=== PATIENT | male | born 1940 | race Caucasian/White ===

== ENCOUNTER 2019-04-25 03:35 | Emergency (ER) | payer MEDICARE, MEDICAID ==
[~2019-04-25] VITALS: Ht 172.7 cm; Wt 95.3 kg
[~2019-04-25 03:35] MED LIST: ACET-1156 PO; ALPR0.254 PO; AMIO200T33 PO; ASPI-404 PO; CYCL1TAB18 PO; DIPH2.5T73 PO; FOLI1TAB6 PO; HYDR-4833 PO; IPRA1SOL3 IN; LEVO50TA7 PO; MAGN400S25 PO; NAP500T PO; NITR100C44 PO; RIS1T PO; TAMS0.4C36 PO; TEMA30CA PO; TRAZ50TA2 PO
[2019-04-25 04:21] LABS: Eosinophils # (auto) 0.3 uL; Hemoglobin 10.1 g/dL (13.5-17.5); White Blood Cell 4.6 10^3/uL (4.4-10.8)
[2019-04-25 04:22] LABS: Basophils # (auto) 0.1 uL; Basophils % (auto) 1.1 % (0.0-2.0); Eosinophils % (auto) 6.1 % (0.0-7.0); Hematocrit 29.4 % (41.0-53.0); Lymphocytes % (auto) 21.8 % (10.0-50.0); Mean Corpuscular Hemoglobin 35.4 pg (28.0-32.0); Mean Corpuscular Hgb Conc. 34.4 g/dL (32.0-36.0); Mean Corpuscular Volume 102.8 fL (80.0-100.0); Monocytes # (auto) 0.5 uL; Monocytes % (auto) 10.3 % (0.0-12.0); Neutrophils # (auto) 2.8 uL; Neutrophils % (auto) 60.7 % (37.0-80.0); Nucleated Red Blood Cells % 0.1 %; Platelet Count (auto) 134 10^3/uL (140-450); Red Blood Cells 2.86 10^6/uL (4.5-5.90); Red Cell Distribution Width 13.4 % (11.8-14.3)
[2019-04-25 04:37] LABS: Albumin 2.4 g/dL (3.4-5.0); Anion Gap 9 (5-15); Blood Urea Nitrogen 18 mg/dL (7-18); Calcium 7.9 mg/dL (8.5-10.1); Carbon Dioxide 24 mmol/L (21-32); Chloride 108 mmol/L (98-107); GFR African American 87 mL/min; GFR Non-African American 72 mL/min; Glucose 84 mg/dL (74-106); Potassium 3.9 mmol/L (3.5-5.1); Sodium 141 mmol/L (136-145)
[2019-04-25 04:44] LABS: Alanine Aminotransferase 27 U/L (16-61); Alkaline Phosphatase 118 U/L (45-117); Aspartate Aminotransferase 22 U/L (15-37); Bilirubin, Total 0.3 mg/dL (0.2-1.0); Total Protein 6.2 g/dL (6.4-8.2)
[2019-04-25 05:52] LABS: Urine Bacteria FEW /hpf (None Seen); Urine Blood 2+ /uL (Negative); Urine Specific Gravity 1.011 (1.001-1.035); Urine WBC 120 /hpf (0 - 3); Urine WBC Clumps PRESENT /hpf (None Seen)
[2019-04-25 05:57] LABS: INR 1.06 (0.9-1.15)
[2019-04-25] MEDS ORDERED: cefTRIAXone 1GM/50ML D5W 50 ML IV ONE (07:00)
[2019-04-25] MEDS ORDERED: IOHEXOL 350 MG/ML 100ML IJ ONE (07:03)
[2019-04-25] MEDS: MORPHINE SULF INJ 2 MG/ML SYRINGE 1ML IV ONE ×2 (07:15→10:45)
[2019-04-25] MEDS: ONDANSETRON HCL 4 MG/2 ML VIAL IV ONE ×2 (07:15→10:45)
[2019-04-25] MEDS ORDERED: SPIRONOLACTONE 25 MG TAB PO ONE (10:15)
[2019-04-25] MEDS ORDERED: FUROSEMIDE 20 MG/2 ML VIAL IV ONE (10:15)
[2019-04-25 14:11] VITALS: BP 108/62
== END 2019-04-25 15:11 ==
LOC: ER 03:35 → EDBD 03:35 → EDUNIT# 03:35 → ER 15:11
DX: R33.9 Retention of urine, unspecified (principal); Q54.9 Hypospadias, unspecified; N47.2 Paraphimosis; I48.91 Unspecified atrial fibrillation; E11.9 Type 2 diabetes mellitus without complications; Z86.73 Personal history of transient ischemic attack (TIA), and cerebral infarction without residual deficits; Z79.82 Long term (current) use of aspirin; Z79.899 Other long term (current) drug therapy
CPT/HCPCS: 36415; 71275; 80053; 81001; 84484; 85025; 85379; 85610; 96365; 96375; 99285; J0696; J1940; Q9967; J2405

== ENCOUNTER 2019-12-09 10:06 | Inpatient (IN) | payer MEDICARE, MEDICAID ==
[~2019-12-09] VITALS: Ht 172.7 cm; Wt 80.2 kg
[~2019-12-09 10:06] MED LIST changes: +IPRA0.00 IN; -IPRA1SOL3 IN
[2019-12-09] MEDS ORDERED: ALBUTEROL SULF 2.5 MG/0.5ML(0.5%) NEB SOLN NEB ONE (10:45)
[2019-12-09] MEDS ORDERED: levoFLOXacin 750MG 150 ML IV ONE (10:45)
[2019-12-09] MEDS ORDERED: IPRATROPIUM BROM 0.5 MG/2.5ML INH SOL NEB ONE (10:45)
[2019-12-09 10:46] LABS: Basophils # (auto) 0 10 ^3/uL (0-0.2); Basophils % (auto) 0.5 % (0.0-2.0); Eosinophils # (auto) 0.1 10 ^3/uL (0-0.8); Eosinophils % (auto) 3.4 % (0.0-7.0); Hematocrit 35.5 % (41.0-53.0); Lymphocytes # (auto) 0.9 10 ^3/uL (0.4-5.4); Lymphocytes % (auto) 23.2 % (10.0-50.0); Mean Corpuscular Hemoglobin 34.5 pg (28.0-32.0); Mean Corpuscular Hgb Conc. 33.8 g/dL (32.0-36.0); Mean Corpuscular Volume 102.2 fL (80.0-100.0); Monocytes # (auto) 0.6 10 ^3/uL (0-1.3); Monocytes % (auto) 16.9 % (0.0-12.0); Neutrophils # (auto) 2.1 10 ^3/uL (1.6-8.6); Platelet Count (auto) 117 10^3/uL (140-450); Red Blood Cells 3.48 10^6/uL (4.5-5.90); Red Cell Distribution Width 13.5 % (11.8-14.3); White Blood Cell 3.7 10^3/uL (4.4-10.8)
[2019-12-09 11:05] LABS: Calcium 8.1 mg/dL (8.5-10.1); Potassium 4.1 mmol/L (3.5-5.1)
[2019-12-09 11:08] LABS: BUN/Creatinine Ratio 15.7; Bilirubin, Total 0.3 mg/dL (0.2-1.0); Total Protein 6.4 g/dL (6.4-8.2)
[2019-12-09] MEDS ORDERED: NITROGLYCERIN 0.4 MG SL TAB SL PRN (13:00)
[2019-12-09] MEDS ORDERED: MORPHINE SULF INJ 2 MG/ML SYRINGE 1ML IV PRN ×2 (13:00)
[2019-12-09] MEDS ORDERED: ACETAMINOPHEN 500 MG TAB PO PRN (13:00)
[2019-12-09] MEDS ORDERED: HYDROcodone-ACET 5/325MG TAB PO PRN (13:00)
[2019-12-09 13:10] VITALS: BP 109/52
[2019-12-09 16:10] VITALS: BP 139/66
[2019-12-09 17:00] VITALS: BP 139/66
[2019-12-09] MEDS: IPRATROPIUM BROM 0.5 MG/2.5ML INH SOL NEB SCH (18:21)
[2019-12-09] MEDS: ALBUTEROL SULF 2.5 MG/0.5ML(0.5%) NEB SOLN NEB SCH (18:21)
[2019-12-09] MEDS: BUDESONIDE (INHALATION) 0.5 MG/2 ML NEB NEB SCH (18:21)
[2019-12-09] MEDS: PIPERACILLIN-TAZOB 3.375GM 100 ML IV SCH ×2 (18:26→23:24)
[2019-12-09] MEDS: TAMSULOSIN HYDROCHLORIDE 0.4 MG CAP PO SCH (18:27)
[2019-12-09] MEDS: traZODone HCL 50 MG TAB PO SCH (21:20)
[2019-12-09] MEDS: APIXABAN 2.5 MG TAB PO SCH (21:20)
[2019-12-09] MEDS: ATORVASTATIN 20 MG TAB PO SCH (21:20)
[2019-12-09 22:00] VITALS: BP 123/73
[2019-12-10 04:57] VITALS: BP 126/67
[2019-12-10] MEDS: PIPERACILLIN-TAZOB 3.375GM 100 ML IV SCH ×4 (05:39→23:56)
[2019-12-10 06:36] LABS: Mean Corpuscular Hemoglobin 35.2 pg (28.0-32.0); Platelet Count (auto) 112 10^3/uL (140-450); Red Blood Cells 3.45 10^6/uL (4.5-5.90); Red Cell Distribution Width 13.5 % (11.8-14.3); White Blood Cell 4.6 10^3/uL (4.4-10.8)
[2019-12-10 06:40] LABS: Hematocrit 35.6 % (41.0-53.0); Hemoglobin 12.1 g/dL (13.5-17.5); Mean Corpuscular Hgb Conc. 34.1 g/dL (32.0-36.0); Mean Corpuscular Volume 103.3 fL (80.0-100.0)
[2019-12-10 06:46] LABS: BUN/Creatinine Ratio 14.4; Calcium 8.3 mg/dL (8.5-10.1); Potassium 4.3 mmol/L (3.5-5.1)
[2019-12-10 06:52] LABS: Basophils % (manual) 0 (0.0-2.0); Blast Cells 0; Eosinophils % (manual) 0 (0-7); Metamyelocytes % 0; Myelocytes % 0; Promyelocytes % 0; Reactive Lymphocytes 0
[2019-12-10] MEDS: ALBUTEROL SULF 2.5 MG/0.5ML(0.5%) NEB SOLN NEB SCH ×3 (07:31→19:20)
[2019-12-10] MEDS: IPRATROPIUM BROM 0.5 MG/2.5ML INH SOL NEB SCH ×3 (07:31→19:20)
[2019-12-10] MEDS: BUDESONIDE (INHALATION) 0.5 MG/2 ML NEB NEB SCH ×2 (07:31→19:20)
[2019-12-10 08:00] VITALS: BP 128/63
[2019-12-10 08:08] LABS: Band Neutrophils % (manual) 3; Lymphocytes % (manual) 24 (10.0-50.0); Monocytes % (manual) 11 (0-12)
[2019-12-10 09:00] VITALS: BP 128/63
[2019-12-10] MEDS: FAMOTIDINE 20 MG TAB PO SCH (09:58)
[2019-12-10] MEDS: APIXABAN 2.5 MG TAB PO SCH ×2 (09:58→22:40)
[2019-12-10] MEDS ORDERED: APIX5TAB PO (09:59)
[2019-12-10] MEDS ORDERED: DOCU-94 PO (09:59)
[2019-12-10] MEDS ORDERED: BISA-3 PO (09:59)
[2019-12-10] MEDS ORDERED: FLEETMIN PR (09:59)
[2019-12-10] MEDS ORDERED: MAGN400S25 PO (09:59)
[2019-12-10] MEDS ORDERED: UROJET2 MM (09:59)
[2019-12-10] MEDS ORDERED: ATOR20TA50 PO (09:59)
[2019-12-10] MEDS ORDERED: PERCOT PO (09:59)
[2019-12-10] MEDS ORDERED: LORA0.5T12 PO (09:59)
[2019-12-10] MEDS ORDERED: BISA10SU5 RE (09:59)
[2019-12-10] MEDS: ONDANSETRON HCL 4 MG/2 ML VIAL IV PRN ×2 (10:27→18:23)
[2019-12-10] MEDS ORDERED: levoFLOXacin 500MG 100 ML IV ONE (11:30)
[2019-12-10 13:00] VITALS: BP 110/63
[2019-12-10 17:00] VITALS: BP 110/56
[2019-12-10] MEDS: TAMSULOSIN HYDROCHLORIDE 0.4 MG CAP PO SCH (18:05)
[2019-12-10 22:00] VITALS: BP 111/71
[2019-12-10] MEDS: traZODone HCL 50 MG TAB PO SCH (22:40)
[2019-12-10] MEDS: ATORVASTATIN 20 MG TAB PO SCH (22:41)
[2019-12-11 02:00] VITALS: BP 110/59
[2019-12-11 04:48] VITALS: BP 122/64
[2019-12-11] MEDS: PIPERACILLIN-TAZOB 3.375GM 100 ML IV SCH ×2 (05:18→12:59)
[2019-12-11 06:36] LABS: BUN/Creatinine Ratio 15.2; Calcium 8.4 mg/dL (8.5-10.1); Potassium 3.9 mmol/L (3.5-5.1)
[2019-12-11] MEDS: BUDESONIDE (INHALATION) 0.5 MG/2 ML NEB NEB SCH ×2 (07:19→20:23)
[2019-12-11] MEDS: IPRATROPIUM BROM 0.5 MG/2.5ML INH SOL NEB SCH ×3 (07:19→20:23)
[2019-12-11] MEDS: ALBUTEROL SULF 2.5 MG/0.5ML(0.5%) NEB SOLN NEB SCH ×3 (07:19→20:23)
[2019-12-11 08:32] LABS: Free T4 (Free Thyroxine) 1.23 ng/dL (0.89-1.76)
[2019-12-11 08:33] LABS: Folate (Folic Acid) 11.15 ng/mL (5.38-24)
[2019-12-11 09:00] VITALS: BP 125/61
[2019-12-11] MEDS: APIXABAN 2.5 MG TAB PO SCH ×2 (10:29→21:21)
[2019-12-11] MEDS: FAMOTIDINE 20 MG TAB PO SCH (10:29)
[2019-12-11] MEDS: levoFLOXacin 500MG 100 ML IV SCH (10:34)
[2019-12-11] MEDS ORDERED: MULTIPLE VITAMINS W/ MINERALS TAB PO ONE (12:00)
[2019-12-11] MEDS ORDERED: SODIUM CHLORIDE 0.9% 1,000 ML IV ONE (12:00)
[2019-12-11] MEDS ORDERED: CYANOCOBALAMIN (B-12) 1000 MCG/1 ML VIAL SUBCUT ONE (12:00)
[2019-12-11 13:00] VITALS: BP 113/67
[2019-12-11] MEDS ORDERED: FLORASTOR (S. BOULARDII) 250 MG CAP PO SCH (13:45)
[2019-12-11] MEDS ORDERED: FLORASTOR (S. BOULARDII) 250 MG CAP PO ONE (14:00)
[2019-12-11 17:20] VITALS: BP 119/61
[2019-12-11] MEDS: TAMSULOSIN HYDROCHLORIDE 0.4 MG CAP PO SCH (18:28)
[2019-12-11] MEDS: traZODone HCL 50 MG TAB PO SCH (21:21)
[2019-12-11] MEDS: FLORASTOR (S. BOULARDII) 250 MG CAP PO SCH (21:21)
[2019-12-11] MEDS: ATORVASTATIN 20 MG TAB PO SCH (21:22)
[2019-12-12 04:42] VITALS: BP 113/55
[2019-12-12 06:02] LABS: Basophils # (auto) 0 10 ^3/uL (0-0.2); Basophils % (auto) 0.2 % (0.0-2.0); Eosinophils # (auto) 0.1 10 ^3/uL (0-0.8); Eosinophils % (auto) 3.4 % (0.0-7.0); Hematocrit 33.4 % (41.0-53.0); Hemoglobin 11.4 g/dL (13.5-17.5); Lymphocytes # (auto) 1.1 10 ^3/uL (0.4-5.4); Lymphocytes % (auto) 28.2 % (10.0-50.0); Mean Corpuscular Hgb Conc. 34.1 g/dL (32.0-36.0); Mean Corpuscular Volume 102.6 fL (80.0-100.0); Monocytes # (auto) 0.6 10 ^3/uL (0-1.3); Monocytes % (auto) 13.6 % (0.0-12.0); Neutrophils # (auto) 2.2 10 ^3/uL (1.6-8.6); Neutrophils % (auto) 54.6 % (37.0-80.0); Nucleated Red Blood Cells % 0.1 %; Platelet Count (auto) 114 10^3/uL (140-450); Red Blood Cells 3.26 10^6/uL (4.5-5.90); Red Cell Distribution Width 13.4 % (11.8-14.3); White Blood Cell 4.1 10^3/uL (4.4-10.8)
[2019-12-12 06:15] LABS: Calcium 8.3 mg/dL (8.5-10.1); Magnesium 2.6 mg/dL (1.6-2.6); Potassium 3.5 mmol/L (3.5-5.1)
[2019-12-12 06:18] LABS: BUN/Creatinine Ratio 16.2
[2019-12-12] MEDS: IPRATROPIUM BROM 0.5 MG/2.5ML INH SOL NEB SCH ×3 (06:43→19:21)
[2019-12-12] MEDS: ALBUTEROL SULF 2.5 MG/0.5ML(0.5%) NEB SOLN NEB SCH ×3 (06:44→19:21)
[2019-12-12] MEDS: BUDESONIDE (INHALATION) 0.5 MG/2 ML NEB NEB SCH ×2 (06:44→19:21)
[2019-12-12 08:00] VITALS: BP 112/70
[2019-12-12] MEDS: FLORASTOR (S. BOULARDII) 250 MG CAP PO SCH ×2 (10:00→22:05)
[2019-12-12] MEDS: levoFLOXacin 500MG 100 ML IV SCH (11:43)
[2019-12-12] MEDS: APIXABAN 2.5 MG TAB PO SCH ×2 (11:43→22:05)
[2019-12-12] MEDS: FAMOTIDINE 20 MG TAB PO SCH (11:44)
[2019-12-12] MEDS: MULTIPLE VITAMINS W/ MINERALS TAB PO SCH (11:44)
[2019-12-12 12:00] VITALS: BP 101/59
[2019-12-12 17:00] VITALS: BP 117/60
[2019-12-12] MEDS: TAMSULOSIN HYDROCHLORIDE 0.4 MG CAP PO SCH (18:00)
[2019-12-12 22:00] VITALS: BP 107/55
[2019-12-12] MEDS: traZODone HCL 50 MG TAB PO SCH (22:05)
[2019-12-12] MEDS: ATORVASTATIN 20 MG TAB PO SCH (22:05)
[2019-12-13 05:00] VITALS: BP 119/66
[2019-12-13] MEDS: BUDESONIDE (INHALATION) 0.5 MG/2 ML NEB NEB SCH ×2 (06:30→19:07)
[2019-12-13] MEDS: IPRATROPIUM BROM 0.5 MG/2.5ML INH SOL NEB SCH ×3 (06:30→19:07)
[2019-12-13] MEDS: ALBUTEROL SULF 2.5 MG/0.5ML(0.5%) NEB SOLN NEB SCH ×3 (06:30→19:07)
[2019-12-13 08:59] VITALS: BP 128/69
[2019-12-13] MEDS: APIXABAN 2.5 MG TAB PO SCH ×2 (12:35→22:00)
[2019-12-13] MEDS: levoFLOXacin 500MG 100 ML IV SCH (12:35)
[2019-12-13] MEDS: FAMOTIDINE 20 MG TAB PO SCH (12:36)
[2019-12-13] MEDS: FLORASTOR (S. BOULARDII) 250 MG CAP PO SCH ×2 (12:36→22:00)
[2019-12-13] MEDS: MULTIPLE VITAMINS W/ MINERALS TAB PO SCH (12:36)
[2019-12-13 13:00] VITALS: BP 137/62
[2019-12-13 16:45] VITALS: BP 117/59
[2019-12-13] MEDS: TAMSULOSIN HYDROCHLORIDE 0.4 MG CAP PO SCH (19:06)
[2019-12-13 22:00] VITALS: BP 127/56
[2019-12-13] MEDS: ATORVASTATIN 20 MG TAB PO SCH (22:00)
[2019-12-13] MEDS: traZODone HCL 50 MG TAB PO SCH (22:00)
[2019-12-14 02:21] VITALS: BP 116/59
[2019-12-14 05:00] VITALS: BP 122/62
[2019-12-14] MEDS: ALBUTEROL SULF 2.5 MG/0.5ML(0.5%) NEB SOLN NEB SCH ×2 (06:43→11:14)
[2019-12-14] MEDS: IPRATROPIUM BROM 0.5 MG/2.5ML INH SOL NEB SCH ×2 (06:43→11:14)
[2019-12-14] MEDS: BUDESONIDE (INHALATION) 0.5 MG/2 ML NEB NEB SCH (06:43)
[2019-12-14 07:51] LABS: Basophils # (auto) 0 10 ^3/uL (0-0.2); Basophils % (auto) 0.2 % (0.0-2.0); Eosinophils # (auto) 0.2 10 ^3/uL (0-0.8); Eosinophils % (auto) 2.9 % (0.0-7.0); Mean Corpuscular Hgb Conc. 33.6 g/dL (32.0-36.0); Monocytes # (auto) 0.7 10 ^3/uL (0-1.3); Red Cell Distribution Width 13.6 % (11.8-14.3)
[2019-12-14 07:52] LABS: Hematocrit 35.6 % (41.0-53.0); Lymphocytes # (auto) 1.3 10 ^3/uL (0.4-5.4); Lymphocytes % (auto) 23.4 % (10.0-50.0); Mean Corpuscular Hemoglobin 34.8 pg (28.0-32.0); Mean Corpuscular Volume 103.5 fL (80.0-100.0); Monocytes % (auto) 11.8 % (0.0-12.0); Neutrophils # (auto) 3.5 10 ^3/uL (1.6-8.6); Neutrophils % (auto) 61.7 % (37.0-80.0); Platelet Count (auto) 122 10^3/uL (140-450); Red Blood Cells 3.44 10^6/uL (4.5-5.90); White Blood Cell 5.6 10^3/uL (4.4-10.8)
[2019-12-14 08:09] LABS: Albumin 2.9 g/dL (3.4-5.0); Calcium 8.5 mg/dL (8.5-10.1)
[2019-12-14 08:13] LABS: BUN/Creatinine Ratio 17.1; Bilirubin, Total 0.2 mg/dL (0.2-1.0); Total Protein 6.6 g/dL (6.4-8.2)
[2019-12-14 09:00] VITALS: BP 125/64
[2019-12-14] MEDS ORDERED: LOPERAMIDE HCL 2 MG CAP PO ONE (09:45)
[2019-12-14] MEDS ORDERED: levoFLOXacin 500 MG TAB PO SCH (10:00)
[2019-12-14] MEDS: FLORASTOR (S. BOULARDII) 250 MG CAP PO SCH (10:59)
[2019-12-14] MEDS: APIXABAN 2.5 MG TAB PO SCH (10:59)
[2019-12-14] MEDS: MULTIPLE VITAMINS W/ MINERALS TAB PO SCH (11:01)
[2019-12-14] MEDS: FAMOTIDINE 20 MG TAB PO SCH (11:01)
[2019-12-14 13:00] VITALS: BP 122/57
[2019-12-14 13:31] VITALS: BP 122/57
== END 2019-12-14 15:15 | DRG 178 ==
LOC: EDUNIT# 10:06 → ER 10:06 → EDBD 10:06 → TELE 10:07 → TELE-WESTW 15:42
PROVIDERS: ADMIT Nurse Practitioner Acute Care; ATTEND Internal Medicine
DX: J15.6 Pneumonia due to other Gram-negative bacteria (principal); E44.1 Mild protein-calorie malnutrition; E03.9 Hypothyroidism, unspecified; I48.91 Unspecified atrial fibrillation; N18.3 Chronic kidney disease, stage 3 (moderate); Z68.26 Body mass index [BMI] 26.0-26.9, adult; E11.22 Type 2 diabetes mellitus with diabetic chronic kidney disease; F41.9 Anxiety disorder, unspecified; Z66 Do not resuscitate; F03.90 Unspecified dementia, unspecified severity, without behavioral disturbance, psychotic disturbance, mood disturbance, and anxiety; I13.10 Hypertensive heart and chronic kidney disease without heart failure, with stage 1 through stage 4 chronic kidney disease, or unspecified chronic kidney disease; Z87.440 Personal history of urinary (tract) infections; Z86.73 Personal history of transient ischemic attack (TIA), and cerebral infarction without residual deficits; Z74.01 Bed confinement status
CPT/HCPCS: 36415; 71045; 80048; 80053; 82607; 82746; 83735; 83880; 84439; 84443; 84484; 85007; 85025; 85027; 87045; 87081; 87427; 87493; 87804; 92610; 93005; 94640; 96365; 96366; 96375; 97110; 97163; 97530; G0378; J1956; J2405; J2543

== ENCOUNTER 2020-04-06 19:08 | Inpatient (IN) | payer MEDICARE, MEDICAID ==
[~2020-04-06] VITALS: Ht 167.6 cm; Wt 81.9 kg
[~2020-04-06 19:08] MED LIST changes: -ALPR0.254 PO; -AMIO200T33 PO; +APIX5TAB PO; -ASPI-404 PO; +ATOR20TA50 PO; +BISA-3 PO; +BISA10SU5 RE; -CYCL1TAB18 PO; -DIPH2.5T73 PO; +DOCU-94 PO; +FLEETMIN PR; -FOLI1TAB6 PO; -HYDR-4833 PO; -IPRA0.00 IN; +LORA0.5T20 PO; -NAP500T PO; -NITR100C44 PO; +PERCOT PO; -RIS1T PO; -TEMA30CA PO; +UROJET2 MM
[2020-04-07 00:35] LABS: Basophils # (auto) 0 10 ^3/uL (0-0.2); Basophils % (auto) 0.9 % (0.0-2.0); Eosinophils # (auto) 0 10 ^3/uL (0-0.8); Hemoglobin 13.8 g/dL (13.5-17.5); Lymphocytes # (auto) 0.3 10 ^3/uL (0.4-5.4); Lymphocytes % (auto) 10.2 % (10.0-50.0); Mean Corpuscular Hemoglobin 33.1 pg (28.0-32.0); Mean Corpuscular Hgb Conc. 32.9 g/dL (32.0-36.0); Mean Corpuscular Volume 100.6 fL (80.0-100.0); Monocytes # (auto) 0.2 10 ^3/uL (0-1.3); Monocytes % (auto) 9.3 % (0.0-12.0); Neutrophils # (auto) 2.1 10 ^3/uL (1.6-8.6); Neutrophils % (auto) 79.6 % (37.0-80.0); Nucleated Red Blood Cells % 0.9 %; Platelet Count (auto) 101 10^3/uL (140-450); Red Blood Cells 4.17 10^6/uL (4.5-5.90); Red Cell Distribution Width 15.1 % (11.8-14.3); White Blood Cell 2.6 10^3/uL (4.4-10.8)
[2020-04-07 00:43] LABS: INR 1.19 (0.9-1.15); Partial Thromboplastin Time 29.9 sec (23.64-32.05)
[2020-04-07 00:47] LABS: Albumin 2.6 g/dL (3.4-5.0); BUN/Creatinine Ratio 37.3; Calcium 8.2 mg/dL (8.5-10.1); Potassium 3.8 mmol/L (3.5-5.1)
[2020-04-07] MEDS ORDERED: dilTIAZem 25 MG/5 ML VIAL IV ONE (01:15)
[2020-04-07 01:49] LABS: Bilirubin, Total 0.6 mg/dL (0.2-1.0); CRP High Sensitivity 7.36 mg/dL (< 0.3)
[2020-04-07] MEDS ORDERED: LACTATED RINGER'S 1,000 ML IV ONE (02:00)
[2020-04-07] MEDS ORDERED: ENOXAPARIN SOD 60 MG/0.6 ML SYRINGE SC ONE (02:00)
[2020-04-07] MEDS ORDERED: AZITHROMYCIN 500MG/ 250ML 250 ML IV ONE (02:00)
[2020-04-07] MEDS ORDERED: SODIUM CHLORIDE 0.9% 1,000 ML IV SCH (02:57)
[2020-04-07] MEDS ORDERED: AMIODARONE HCL 150 MG in D5W 5% 100 ML IV ONE (03:00)
[2020-04-07] MEDS ORDERED: NITROGLYCERIN 0.4 MG SL TAB SL PRN (03:00)
[2020-04-07] MEDS ORDERED: AMIODARONE 450mg/250ml AE 250 ML IV SCH (03:07)
[2020-04-07 03:22] VITALS: BP 106/58
[2020-04-07] MEDS ORDERED: AMIODARONE HCL (50 MG/ ML) 3 ML VIAL IV ONE (04:08)
[2020-04-07] MEDS: DOXYCYCLINE 100MG/250ML 250 ML IV SCH ×2 (05:30→21:53)
[2020-04-07] MEDS ORDERED: ALBUTEROL SULF HFA 90MCG INH 200DOSE IN SCH (06:00)
[2020-04-07] MEDS: ZINC SULFATE 220mg CAP or TAB PO SCH (08:12)
[2020-04-07] MEDS: ASCORBIC ACID 1,000 MG TAB PO SCH (08:13)
[2020-04-07] MEDS: CHOLECALCIFEROL (VITD3) 1,000UNIT=25mCg TAB PO SCH (08:13)
[2020-04-07] MEDS: PANTOPRAZOLE 40 MG TAB PO SCH (08:13)
[2020-04-07 08:31] LABS: Urine Bacteria FEW /hpf (None Seen); Urine Blood 3+ /uL (Negative); Urine Hyaline Cast FEW /lpf (0 - 2); Urine Mucus FEW (None Seen); Urine Specific Gravity 1.016 (1.001-1.035); Urine WBC 10 /hpf (0 - 3)
[2020-04-07] MEDS: ONDANSETRON HCL 4 MG/2 ML VIAL IV PRN (08:45)
[2020-04-07] MEDS: AMIODARONE 450mg/250ml AE 250 ML IV SCH (09:11)
[2020-04-07] MEDS ORDERED: methylPREDNISolone SOD SUCC 40 MG/ML VL IV ONE (11:45)
[2020-04-07] MEDS ORDERED: ERTAPENEM SOD INJ 1 GM in SODIUM CHL 0.9% 50 ML IV ONE (12:00)
[2020-04-07 14:48] LABS: Lactic Acid w/Reflex 2.9 mmol/L (0.4-2.0)
[2020-04-07] MEDS: SODIUM CHLORIDE 0.9% 1,000 ML IV SCH (17:27)
[2020-04-07] MEDS ORDERED: HYDROCORTISONE SOD SUCC 100 MG/2ML INJ VIAL ONE (19:43)
[2020-04-07] MEDS: methylPREDNISolone SOD SUCC 40 MG/ML VL IV SCH ×2 (20:15→21:51)
[2020-04-07] MEDS: APIXABAN 2.5 MG TAB PO SCH (21:53)
[2020-04-08] MEDS: AMIODARONE 450mg/250ml AE 250 ML IV SCH ×2 (00:07→17:03)
--- NOTE | 2020-04-08 03:35 | NUR ---
Telemetry admit from ER HANS MCKINLEY admitted to Telemetry unit after SBAR received. Patient oriented to David Martin, primary RN, unit, room, bed, and unit policies regarding patient care and visiting hours. Patient now on continuous telemetry monitoring, tele box # 19 and telemetry reading on arrival to unit is Afib. Patient placed on bedside oxygen, weighed by bedscale. Fall precaution measures in place. Will continue to monitor Q1HR or PRN.
[2020-04-08 04:29] VITALS: BP 103/48
[2020-04-08 05:00] VITALS: BP 103/48
[2020-04-08] MEDS: SODIUM CHLORIDE 0.9% 1,000 ML IV SCH (06:52)
--- NOTE | 2020-04-08 06:55 | NUR ---
Patient is confused, trying to removed the O2 mask and tends to be combative when mask is being fixed, patient reoriented. MRSA swab sent to laboratory.
--- NOTE | 2020-04-08 07:30 | NUR ---
Respiratory note: At bedside for O2 assessment. Found pt on room air SPO2 76%. Placed pt on simple mask 7lpm due to pt mouth-breathing, SPO2 increased to 94% and maintaining. Breath sounds clear/dim. Pt bringing arms to face attempting to take mask off. Pt with mittens on, wearing simple mask and tolerating, no s/s of distress noted. Will continue to monitor.
--- NOTE | 2020-04-08 07:30 | NUR ---
Opening Shift Note RECEIVED REPORT FROM NOC RN. Assumed care of patient, awake and alert. PATIENT ON OXYGEN AT 7 LPM VIA SIMPLE MASK WITH no S/S of distress/SOB or pain. BED IN LOWEST, LOCKED POSITION WITH SIDERAILS UP x2 AND CALL LIGHT WITHIN REACH. Instructed on POC and to call for assist PRN, will continue to monitor for changes Q1hr and PRN.
[2020-04-08 09:00] VITALS: BP 111/67
[2020-04-08] MEDS ORDERED: ENOXAPARIN SOD 40 MG/0.4 ML SYRINGE SC SCH (10:00)
[2020-04-08] MEDS: ERTAPENEM SOD INJ 1 GM in SODIUM CHL 0.9% 50 ML IV SCH (10:06)
[2020-04-08] MEDS: PANTOPRAZOLE 40 MG TAB PO SCH (10:07)
[2020-04-08] MEDS: DOXYCYCLINE 100MG/250ML 250 ML IV SCH ×2 (10:07→21:29)
[2020-04-08] MEDS: APIXABAN 2.5 MG TAB PO SCH ×2 (10:07→21:29)
[2020-04-08] MEDS: methylPREDNISolone SOD SUCC 40 MG/ML VL IV SCH ×2 (10:07→21:29)
[2020-04-08] MEDS: ZINC SULFATE 220mg CAP or TAB PO SCH (10:07)
[2020-04-08] MEDS: CHOLECALCIFEROL (VITD3) 1,000UNIT=25mCg TAB PO SCH (10:08)
[2020-04-08] MEDS: ASCORBIC ACID 1,000 MG TAB PO SCH (10:08)
[2020-04-08 12:43] VITALS: BP 135/70
--- NOTE | 2020-04-08 13:00 | NUR ---
WOUND CARE NOTE: SPECIALTY AIR MATTRESS ORDERED AT THIS TIME. PATIENT TO BE PLACED, PENDING DELIVERY BY SAVANNAH STEIN. PATIENT IS NOTED TO HAVE LOW ADRIANNA 12. HE IS MAX ASSIST FOR HIS ADL'S. PATIENT WOULD BENEFIT FROM SKIN/WOUND CARE PLAN, FREQUENT TURN SCHEDULE Q 2 HOURS, PRN CONDITION PERMITS, WITH PRESSURE REDISTRIBUTION USING PILLOWS/WEDGES, BID/PRN APPLICATION MOISTURE BARRIER CREAM, OPTIFOAM GENTLE SACRAL DRESSING PREVENTATIVE, SPECIALTY AIR MATTRESS, SKIN/WOUND CARE PLAN, CONTINUED MONITORING BY WOUND CARE TEAM.
--- NOTE | 2020-04-08 14:39 | NUR ---
DR. PAN AT BEDSIDE.
--- NOTE | 2020-04-08 15:43 | NUR ---
Respiratory note: FOUND PT WITH O2 MASK OFF, SPO2 84% ON ROOM AIR. PLACED PT ON 4LPM NASAL CANNULA, HR 69, RR 20, SPO2 93%. NO S/S OF DISTRESS NOTED.
--- NOTE | 2020-04-08 16:28 | NUR ---
ATTEMPTED TO PAGE DR. REYNOLDS, PER DR. PAN REGARDING CONTINUATION OF AMIODARONE DRIP.
[2020-04-08 17:00] VITALS: BP 105/52
--- NOTE | 2020-04-08 18:01 | NUR ---
DR. REYNOLDS AT BEDSIDE. NEW ORDERS RECEIVED TO D/C AMIODARONE DRLAMBERTO.
--- NOTE | 2020-04-08 19:15 | NUR ---
Opening shift note: Assumed care of patient. Patient confused and unable to verbalize understanding, witnessed attempting to pull out IV and sims catheter, patient redirected and oriented to surroundings. No s/s of SOB or distress, respirations even and unlabored. Instructed on POC and encouraged to use call samaniego for assistance. Bed in lowest locked position with two side rails raised, call samaniego within reach, and bed alarm activated and proper fall precautions in place. Sims hung below the bladder and draining to gravity. Will continue to monitor Q1 hr and PRN.
[2020-04-08 21:12] LABS: Hemoglobin 10.4 g/dL (13.5-17.5); White Blood Cell 2.2 10^3/uL (4.4-10.8)
[2020-04-08 21:14] LABS: Mean Corpuscular Hemoglobin 34.1 pg (28.0-32.0); Mean Corpuscular Hgb Conc. 33.7 g/dL (32.0-36.0); Mean Corpuscular Volume 101.3 fL (80.0-100.0); Platelet Count (auto) 98 10^3/uL (140-450); Red Blood Cells 3.06 10^6/uL (4.5-5.90); Red Cell Distribution Width 14.6 % (11.8-14.3)
[2020-04-08 21:21] LABS: Basophils % (manual) 0 (0.0-2.0); Blast Cells 0; Eosinophils % (manual) 0 (0-7); Metamyelocytes % 0; Myelocytes % 0; Promyelocytes % 0; Reactive Lymphocytes 0
[2020-04-08 21:28] LABS: Calcium 7.9 mg/dL (8.5-10.1); Magnesium 2.8 mg/dL (1.6-2.6); Potassium 3.8 mmol/L (3.5-5.1)
[2020-04-08 21:36] LABS: BUN/Creatinine Ratio 43.4; Bilirubin, Total 0.3 mg/dL (0.2-1.0); CRP High Sensitivity 4.41 mg/dL (< 0.3); Phosphorus 2.6 mg/dL (2.5-4.90); Total Protein 6.1 g/dL (6.4-8.2)
[2020-04-08 22:00] VITALS: BP 109/60
[2020-04-08 22:36] LABS: Band Neutrophils % (manual) 2; Lymphocytes % (manual) 10 (10.0-50.0); Monocytes % (manual) 1 (0-12)
--- NOTE | 2020-04-08 23:30 | NUR ---
IV: -IV to the left wrist discontinued, catheter tip intact, pressure dressing applied. -IV to the right hand discontinued, catheter tip intact, pressure dressing applied. Attempted to start new IV, two attempts failed. Charge nurse notified. Will continue to monitor.
--- NOTE | 2020-04-08 23:50 | NUR ---
IV insertion: New let hand 22 gauge IV inserted by Alice Acosta RN, patient tolerated well, will continue to monitor.
--- NOTE | 2020-04-09 | NUR ---
Wound photo to the right big toe taken.
--- NOTE | 2020-04-09 | NUR ---
Patient pulled off O2 mask, O2 sats 80% on room air, O2 reapplied and O2 back to 92% on 7L simple mask.
--- NOTE | 2020-04-09 03:00 | NUR ---
Patient pulled off O2 mask, O2 sats 72% on room air. O2 reapplied and O2 saturation back up to 90%
[2020-04-09 05:00] VITALS: BP 109/59
--- NOTE | 2020-04-09 07:30 | NUR ---
Care endorsed to dayshift RN
--- NOTE | 2020-04-09 07:55 | NUR ---
Respiratory note: FOUND PATIENT OFF HIS OXYGEN, SPO2 WAS IN THE LOW 80'S. I PLACED HIM ON OXYMIZER 7L AND PATIENT RIPPED IT OFF HIS FACE AND WAS VERY AGGRESSIVE. HE REFUSED TO LEAVE IT ON . SPO2 WAS 91% ON ROOM AIR BEFORE LEAVING THE ROOM. I NOTIFIED RN OF PATIENT NOT KEEPING OXYGEN ON .
[2020-04-09 09:00] VITALS: BP 106/65
[2020-04-09] MEDS: ERTAPENEM SOD INJ 1 GM in SODIUM CHL 0.9% 50 ML IV SCH (10:17)
[2020-04-09] MEDS: ZINC SULFATE 220mg CAP or TAB PO SCH (10:18)
[2020-04-09] MEDS: APIXABAN 2.5 MG TAB PO SCH ×2 (10:18→22:04)
[2020-04-09] MEDS: DOXYCYCLINE 100MG/250ML 250 ML IV SCH ×2 (10:18→22:04)
[2020-04-09] MEDS: methylPREDNISolone SOD SUCC 40 MG/ML VL IV SCH ×2 (10:18→22:04)
[2020-04-09] MEDS: ASCORBIC ACID 1,000 MG TAB PO SCH (10:19)
[2020-04-09] MEDS: PANTOPRAZOLE 40 MG TAB PO SCH (10:19)
[2020-04-09] MEDS: CHOLECALCIFEROL (VITD3) 1,000UNIT=25mCg TAB PO SCH (10:19)
--- NOTE | 2020-04-09 12:00 | NUR ---
WOUND CARE NOTE: PATIENT DEVELOPED WOUND OVERNIGHT TO THE RIGHT # 1 TOE. IT APPEARS THAT PATIENT HAS AN INTACT ABRASION TO THE R DORSAL # 1 TOE. WOUND PHOTO WAS TAKEN BY BEDSIDE NURSE FOR REFERENCE. NO NEED FOR DRESSING. PATIENT'S AIR MATTRESS HAS BEEN DELIVERED. PATIENT WILL BE PLACED ON AIR MATTRESS SHORTLY PER BEDSIDE NURSE. WOUND CARE TEAM WILL CONTINUE TO MONITOR. Addendum: 04/09/20 at 1612 by Ju Serrano RN Amended: Links added.
[2020-04-09 13:00] VITALS: BP 105/65
--- NOTE | 2020-04-09 13:05 | NUR ---
PATIENT PLACED ON SPECIALTY BED.
--- NOTE | 2020-04-09 16:25 | NUR ---
Midline Placement: Patient educated on need for midline placement. All risks and benefits explained and all questions and concerns addresses prior to procedure. 18g/10cm midline inserted via LEFT BRACHIAL vein using Ultrasound. Sterile technique utilized. Blood return obtained from THE lumen and flushed easily with NS using proper technique. Midline secured with saline lock; biodisc and occlusive dressing applied. Primary RN notified. Midline lot # [id number].
[2020-04-09 18:04] VITALS: BP 113/76
--- NOTE | 2020-04-09 19:25 | NUR ---
Opening shift note Patient A&O, respirations even with light wheezes on expiration. Patient on RA due to removing his oxymizer. Patient would only allow the placement of the oxymizer near his nose but not directly on his face due to extreme anxiety. Repositioned patient for comfort at this time, placed towel within right hand at patient request. Bed in lowest locked position with 2 side rails up, call light within reach. Will continue to monitor.
--- NOTE | 2020-04-09 21:32 | NUR ---
Bloods drawn, sent to lab
[2020-04-09 22:00] VITALS: BP 116/58
[2020-04-09 22:27] LABS: Calcium 7.9 mg/dL (8.5-10.1); Potassium 3.9 mmol/L (3.5-5.1)
[2020-04-09 22:28] LABS: Lactic Acid w/Reflex 2.2 mmol/L (0.4-2.0)
[2020-04-09 22:38] LABS: BUN/Creatinine Ratio 43.8; CRP High Sensitivity 2.4 mg/dL (< 0.3)
--- NOTE | 2020-04-09 23:00 | NUR ---
Patient pulled off oxymizer, refuses to wear. Patient willing to have oxymizer placed close to nose but not in the nose. Will continue to monitor.
--- NOTE | 2020-04-10 00:30 | NUR ---
Patient continues to push oxymizer off of bed Replaced oxymizer with mask. Patient currently willing to have mask near face. Will continue to monitor.
[2020-04-10] MEDS: guaiFENesin 200 MG/10 ML UD PO PRN ×2 (01:19→11:42)
--- NOTE | 2020-04-10 02:30 | NUR ---
Patient wearing mask at this time. Will continue to monitor.
[2020-04-10 05:00] VITALS: BP 107/62
--- NOTE | 2020-04-10 07:14 | NUR ---
Closing shift note Patient resting with no s/s of distress. Endorsed care to day RNTeresita.
--- NOTE | 2020-04-10 07:35 | NUR ---
RT NOTE: PT ORIGINALLY FOUND ON RA WITH SPO2 86 AND C/O SOB. PLACED BACK ONTO 8L OXYMIZER. SPO2 FRANCES TO 92% AND PT STATED THAT SOB HAD DECREASED. WILL CONTINUE TO MONITOR.
--- NOTE | 2020-04-10 08:00 | NUR ---
PATIENT CONTINUES TO TAKE OFF O2 REFUSING TO WEAR. YELLS AND HITS AT YOU WHEN YOU TRY TO PLACE IT BACK ON.
--- NOTE | 2020-04-10 08:45 | NUR ---
PATIENT LET ME PLACE O2 BACK ON
[2020-04-10 09:00] VITALS: BP 131/71
[2020-04-10] MEDS: DOXYCYCLINE 100MG/250ML 250 ML IV SCH ×2 (09:35→21:38)
[2020-04-10] MEDS: ERTAPENEM SOD INJ 1 GM in SODIUM CHL 0.9% 50 ML IV SCH (09:35)
[2020-04-10] MEDS: methylPREDNISolone SOD SUCC 40 MG/ML VL IV SCH ×2 (09:35→21:37)
[2020-04-10] MEDS: CHOLECALCIFEROL (VITD3) 1,000UNIT=25mCg TAB PO SCH (09:36)
[2020-04-10] MEDS: ASCORBIC ACID 1,000 MG TAB PO SCH (09:36)
[2020-04-10] MEDS: APIXABAN 2.5 MG TAB PO SCH ×2 (09:36→21:38)
[2020-04-10] MEDS: ZINC SULFATE 220mg CAP or TAB PO SCH (09:36)
[2020-04-10] MEDS: PANTOPRAZOLE 40 MG TAB PO SCH (09:36)
--- NOTE | 2020-04-10 12:40 | NUR ---
PATIENT HAS O2 BACK OFF REFUSING TO PUT BACK ON.
[2020-04-10 13:00] VITALS: BP 133/56
--- NOTE | 2020-04-10 13:05 | NUR ---
PATIENT LET ME PLACE O2 BACK ON.
--- NOTE | 2020-04-10 15:56 | NUR ---
Est energy needs 4645-3484 kcal (18-20 kcal/kg BW 88.4kg) Est protein needs 71-88g (0.8-1g/kg BW 88.4kg) will reassess prn. Addendum: 04/10/20 at [address] Amended: Links added.
[2020-04-10 17:00] VITALS: BP 136/72
--- NOTE | 2020-04-10 19:15 | NUR ---
Opening shift note Assumed care of patient who is A&O. Patient currently wearing his NC and respirations are even and non-labored with no s/s of distress. Patient has no c/o pain or discomfort at this time. [place] patent draining clear yellow urine. Bed in lowest locked position with 2 side rails up. Call light within reach. Will continue to monitor.
[2020-04-10 22:00] VITALS: BP 117/67
--- NOTE | 2020-04-11 01:58 | NUR ---
Large BM, linen change, light blanchable redness noted on sacrum. Barrier cream applied and patient repositioned for comfort. Patient tolerated well.
--- NOTE | 2020-04-11 04:30 | NUR ---
Patient O2Sat 75-85%. Placed oxymizer at 6L, notified RT.
[2020-04-11 05:00] VITALS: BP 101/58
[2020-04-11 07:58] LABS: White Blood Cell 3.8 10^3/uL (4.4-10.8)
[2020-04-11 08:00] LABS: Hematocrit 30.3 % (41.0-53.0); Mean Corpuscular Hemoglobin 33.9 pg (28.0-32.0); Mean Corpuscular Hgb Conc. 33.1 g/dL (32.0-36.0); Mean Corpuscular Volume 102.5 fL (80.0-100.0); Platelet Count (auto) 123 10^3/uL (140-450); Red Blood Cells 2.95 10^6/uL (4.5-5.90); Red Cell Distribution Width 15.2 % (11.8-14.3)
[2020-04-11 08:05] LABS: Basophils % (manual) 0 (0.0-2.0); Blast Cells 0; Eosinophils % (manual) 0 (0-7); Myelocytes % 0; Promyelocytes % 0; Reactive Lymphocytes 0
[2020-04-11 08:11] LABS: Calcium 7.9 mg/dL (8.5-10.1); Potassium 4.1 mmol/L (3.5-5.1)
[2020-04-11 08:16] LABS: BUN/Creatinine Ratio 38.9; Bilirubin, Total 0.5 mg/dL (0.2-1.0); Total Protein 5.9 g/dL (6.4-8.2)
[2020-04-11 08:27] LABS: Band Neutrophils % (manual) 1; Lymphocytes % (manual) 10 (10.0-50.0); Metamyelocytes % 1; Monocytes % (manual) 7 (0-12)
[2020-04-11 08:40] VITALS: BP 137/62
[2020-04-11] MEDS: ASCORBIC ACID 1,000 MG TAB PO SCH (10:00)
[2020-04-11] MEDS: CHOLECALCIFEROL (VITD3) 1,000UNIT=25mCg TAB PO SCH (10:00)
[2020-04-11] MEDS: ZINC SULFATE 220mg CAP or TAB PO SCH (10:00)
[2020-04-11 13:00] VITALS: BP 131/62
[2020-04-11] MEDS: ERTAPENEM SOD INJ 1 GM in SODIUM CHL 0.9% 50 ML IV SCH (13:25)
[2020-04-11] MEDS: DOXYCYCLINE 100MG/250ML 250 ML IV SCH ×2 (13:25→21:53)
[2020-04-11] MEDS: methylPREDNISolone SOD SUCC 40 MG/ML VL IV SCH ×2 (13:25→21:53)
[2020-04-11] MEDS: APIXABAN 2.5 MG TAB PO SCH ×2 (13:26→21:53)
[2020-04-11] MEDS: PANTOPRAZOLE 40 MG TAB PO SCH (13:26)
--- NOTE | 2020-04-11 15:34 | NUR ---
assessment Patient is a 79 year old male who is confused. Prior to admission patient resided at [facility] with his for the past 1.5 to 2 years. Patient is keno terminal operator. Per Lara patient will return to [facility] on discharge. Patient has a wheelchair for home use. Patient is Covid positive. Patients PCP is Dr Livingston. Patient has an advanced directive and Alra is his POA. I informed Lara I will continue to monitor and follow up as appropriate. Lara verbalized understanding and agreed to discharge plan back to [facility]. Addendum: 04/11/20 at 1538 by Gretel STEIN Amended: Links added.
[2020-04-11 17:00] VITALS: BP 119/71
--- NOTE | 2020-04-11 19:25 | NUR ---
Opening shift note Assumed care of patient who is A&Ox2, patient currently wearing a NC at 6L with no s/s of distress at this time. [place] patent, draining clear yellow urine. Bed in lowest locked position with 3 side rails up, call light within reach, will continue to monitor.
--- NOTE | 2020-04-11 20:00 | NUR ---
Patient removed NC, O2sat at 75-80%. Replaced with Non-rebreather mask at 10L. Will continue to monitor.
[2020-04-11] MEDS: guaiFENesin 200 MG/10 ML UD PO PRN (21:54)
[2020-04-11] MEDS: ONDANSETRON HCL 4 MG/2 ML VIAL IV PRN (21:54)
[2020-04-11 22:00] VITALS: BP 111/49
[2020-04-12 05:00] VITALS: BP 107/54
--- NOTE | 2020-04-12 07:19 | NUR ---
Closing shift note Patient resting without s/s of distress. Endorsed care to day RNDanny.
[2020-04-12 08:40] VITALS: BP 130/83
[2020-04-12 09:00] VITALS: BP 138/84
[2020-04-12] MEDS: ERTAPENEM SOD INJ 1 GM in SODIUM CHL 0.9% 50 ML IV SCH (11:37)
[2020-04-12] MEDS: methylPREDNISolone SOD SUCC 40 MG/ML VL IV SCH ×2 (11:37→21:46)
[2020-04-12] MEDS: PANTOPRAZOLE 40 MG TAB PO SCH (11:38)
[2020-04-12] MEDS: APIXABAN 2.5 MG TAB PO SCH ×2 (11:38→21:46)
[2020-04-12] MEDS: ZINC SULFATE 220mg CAP or TAB PO SCH (11:38)
[2020-04-12] MEDS: guaiFENesin 200 MG/10 ML UD PO PRN ×2 (11:39→21:46)
[2020-04-12] MEDS: ASCORBIC ACID 1,000 MG TAB PO SCH (11:39)
[2020-04-12] MEDS: CHOLECALCIFEROL (VITD3) 1,000UNIT=25mCg TAB PO SCH (11:39)
[2020-04-12 13:00] VITALS: BP 124/61
--- NOTE | 2020-04-12 15:45 | NUR ---
Paged attending physician Paged Dr. Livingston regarding patients pain. Awaiting call back.
[2020-04-12] MEDS ORDERED: ACETAMINOPHEN 325 MG TAB PO PRN (16:00)
[2020-04-12 16:40] VITALS: BP 127/64
--- NOTE | 2020-04-12 19:42 | NUR ---
End of shift note Endorsed care and D/C to noc RN Nedra. No s/s of distress noted.
--- NOTE | 2020-04-12 19:45 | NUR ---
Opening Shift Note Received report from Danny TAMAYO. Assumed care of patient, awake and alert. No S/S of distress/SOB or pain. Instructed on POC and to call for assist PRN. Fall precaution measures in place, will continue to monitor for changes Q1hr and PRN.
[2020-04-12 22:14] VITALS: BP 153/75
[2020-04-13 05:00] VITALS: BP 139/87
[2020-04-13 08:00] VITALS: BP 136/55
--- NOTE | 2020-04-13 09:00 | NUR ---
Patient pulling off 02 and refusing to wear. Was finally able to get patient to wear it after talking to him for 15-20 mins.
[2020-04-13] MEDS: APIXABAN 2.5 MG TAB PO SCH ×2 (10:04→21:39)
[2020-04-13] MEDS: PANTOPRAZOLE 40 MG TAB PO SCH (10:04)
[2020-04-13] MEDS: ASCORBIC ACID 1,000 MG TAB PO SCH (10:04)
[2020-04-13] MEDS: ZINC SULFATE 220mg CAP or TAB PO SCH (10:04)
[2020-04-13] MEDS: methylPREDNISolone SOD SUCC 40 MG/ML VL IV SCH ×2 (10:04→21:39)
[2020-04-13] MEDS: CHOLECALCIFEROL (VITD3) 1,000UNIT=25mCg TAB PO SCH (10:05)
[2020-04-13] MEDS: ERTAPENEM SOD INJ 1 GM in SODIUM CHL 0.9% 50 ML IV SCH (10:08)
[2020-04-13] MEDS: guaiFENesin 200 MG/10 ML UD PO PRN ×3 (10:27→21:39)
--- NOTE | 2020-04-13 10:46 | NUR ---
Patient showing signs of anxiety, paged Dr to obtain orders.
[2020-04-13] MEDS: ONDANSETRON HCL 4 MG/2 ML VIAL IV PRN (11:04)
[2020-04-13] MEDS: MORPHINE SULF INJ 2 MG/ML SYRINGE 1ML IV PRN ×2 (11:05→23:24)
--- NOTE | 2020-04-13 11:42 | NUR ---
Patient refuses to keep o2 on, patient takes it on and off, sometimes getting angry and hitting at nurses hands. Waiting for Dr to call back.
[2020-04-13 12:00] VITALS: BP 133/68
[2020-04-13] MEDS ORDERED: HALOPERIDOL 1 MG TAB PO ONE (12:15)
--- NOTE | 2020-04-13 12:17 | NUR ---
Received order from Dr Fernandez. for isaiah VICTOR, see order.
--- NOTE | 2020-04-13 13:15 | NUR ---
Patient still continues to show signs of anxiety. Constantly fidgeting with his o2 and taking it off. When I asked patient if the mask hurt he shook his head no.
--- NOTE | 2020-04-13 13:20 | NUR ---
patient repositioned Q2 HRS for comfort but patient still does not seem comfortable.
--- NOTE | 2020-04-13 14:57 | NUR ---
Nutrition Followup Notes Pt wt is 86.6 kg Unable to speak to pt d/t pt is positive for COVID. Pt is wit a Cardiac Diet, appetite is poor aeb ave 26% PO intake over 4 meals per RN doc. Will continue to monitor PO status, skin status, pertinent labs and weight trends. Will f/u in 3-5 days. Recommendation: Consider Ensure Enlive BID to help increase pt PO intake. Est energy needs 4501-4994 kcal (18-20 kcal/kg BW 88.4kg) Est protein needs 71-88g (0.8-1g/kg BW 88.4kg) will reassess prn. LABS: BUN 42 H, Gluc 117 H, Ca 7.9 L, Alb 2.0 L GI: Pt last BM noted on 04/12 per RN doc. BS: 13 mod risk. Refer to wound assessment report for full details. PES: Obesity r/t caloric intake in excess of needs aeb pt with BMI of 31.5kg/m2 which is obese Comments 1) Continue to monitor po intake, labs, skin 2) Refer pt to OPD on DC 3) Continue current plan of care
--- NOTE | 2020-04-13 16:27 | NUR ---
Paged Dr hwang about patients pain, 07/09 to back and neck.
[2020-04-13 17:00] VITALS: BP 116/59
--- NOTE | 2020-04-13 17:04 | NUR ---
per Dr Livingston change tylenol PO to cover pain 1-10 and give for patients current 10/10 pain.
[2020-04-13] MEDS: ACETAMINOPHEN 325 MG TAB PO PRN (17:16)
--- NOTE | 2020-04-13 18:00 | NUR ---
Patient continues to pull off oxygen and attempted to bite and hit when I tried to help him put it back on.
--- NOTE | 2020-04-13 19:20 | NUR ---
Opening Shift Note Received report from Rizwana TAMAYO. Assumed care of patient, awake and alert, non verbal. No S/S of distress/SOB or pain. Instructed on POC and to call for assist PRN, will continue to monitor for changes Q1hr and PRN.
--- NOTE | 2020-04-13 20:30 | NUR ---
Patient repositioned and turned for comfort.
[2020-04-13 22:00] VITALS: BP 133/71
--- NOTE | 2020-04-14 04:12 | NUR ---
Patient's O2 saturation can go as high as 100% on 15L non-rebreather mask but desaturate to as low as 50s when not on as patient continuously pulling out the mask. RN continuously educated the patient to keep the Oxygen on, will listen for awhile but pulls out again later. At this time oxygen is on and at 94% saturation, will continue to monitor.
[2020-04-14] MEDS: ACETAMINOPHEN 325 MG TAB PO PRN ×2 (04:26→11:32)
[2020-04-14 05:00] VITALS: BP 114/61
--- NOTE | 2020-04-14 07:57 | NUR ---
RT NOTE: PT FOUND WITH NRB OFF WITH SPO2 79%. PT STATED HE WAS SOB AND HAD SMALL INCREASED WOB. PLACED BACK ON NRB AT 15L AND SPO2 CAME BACK TO MID 90s. WILL CONTINUE TO MONITOR.
[2020-04-14 08:00] VITALS: BP 139/56
--- NOTE | 2020-04-14 08:00 | NUR ---
ASSESSMENT NOTE PT IS ALERT TO SELF AND SITUATIONS, CONFUSED ON TIMES, CONTRACTED BOTH HANDS AND RT LEG, HEAD OF BED ELEVATED FOR ASPIRATION PRECAUTIONS, OXYGEN OXYMIZER 15 SAT AT 95%, PT TAKE HIS OXYGEN OFF AT ALL TIMES, REORIENT PT AT ALL TIMES, REPOSITION EVERY 2 HOURS, MENDIETA CATHETER TO GRAVITY, NEXT TO NURSING STATION, CHECK ON PT AT ALL TIMES
--- NOTE | 2020-04-14 08:05 | NUR ---
CONTINUE ASSESSMENT NOTE PT SPEECH IS SLURRED, BUT ABLE TO SEND HIS MESSAGE, SUPPORT PT AT ALL TIMES
--- NOTE | 2020-04-14 09:00 | NUR ---
BREAKFAST ASSIST PT TO FEED HIM BREAKFAST, PT ATE 30%, HEAD OF BED ELEVATED, FOR ASPIRATION PRECAUTIONS
[2020-04-14] MEDS: PANTOPRAZOLE 40 MG TAB PO SCH (09:33)
[2020-04-14] MEDS: ASCORBIC ACID 1,000 MG TAB PO SCH (09:33)
[2020-04-14] MEDS: methylPREDNISolone SOD SUCC 40 MG/ML VL IV SCH (09:33)
[2020-04-14] MEDS: ZINC SULFATE 220mg CAP or TAB PO SCH (09:33)
[2020-04-14] MEDS: APIXABAN 2.5 MG TAB PO SCH ×2 (09:33→22:47)
[2020-04-14] MEDS: CHOLECALCIFEROL (VITD3) 1,000UNIT=25mCg TAB PO SCH (09:33)
--- NOTE | 2020-04-14 11:02 | NUR ---
D/C planning Regarding social service consult for SNF placement. Order was redirected to [facility] in [place] due to [facility] not able to take patient back at this time. Renato with [facility] has accepted patient and will assign room when patient is ready to discharge. Placed called to patient daughter Lara at 10:57am advising her patient has been accepted to [facility] and they are aware patient is a group home at [facility] and once [facility] can accept patient they can transfer patient back to his home. Lara verbalize understanding.
[2020-04-14] MEDS: guaiFENesin 200 MG/10 ML UD PO PRN ×2 (11:32→20:33)
--- NOTE | 2020-04-14 11:35 | NUR ---
SWALLOW EVALUATED. PATIENT HAS NATURAL TEETH. PATIENT IS WEAK BUT ABLE TO FOLLOW COMMANDS. PATIENT TOLERATED PUREE TRIAL WITH NECTAR THICKENED LIQUIDS WITH NO OVERT SIGNS OR SYMPTOMS OF ASPIRATION. NURSING NOTIFIED.
[2020-04-14 11:50] LABS: Hematocrit 37.4 % (41.0-53.0); Hemoglobin 12.4 g/dL (13.5-17.5); Mean Corpuscular Hemoglobin 33.8 pg (28.0-32.0); Mean Corpuscular Hgb Conc. 33.1 g/dL (32.0-36.0); Mean Corpuscular Volume 102.1 fL (80.0-100.0); Platelet Count (auto) 97 10^3/uL (140-450); Red Blood Cells 3.66 10^6/uL (4.5-5.90); Red Cell Distribution Width 15.4 % (11.8-14.3); White Blood Cell 8.5 10^3/uL (4.4-10.8)
[2020-04-14 11:53] LABS: Band Neutrophils % (manual) 0; Basophils % (manual) 0 (0.0-2.0); Blast Cells 0; Eosinophils % (manual) 0 (0-7); Metamyelocytes % 0; Myelocytes % 0; Promyelocytes % 0; Reactive Lymphocytes 0
[2020-04-14 12:00] VITALS: BP 145/58
--- NOTE | 2020-04-14 12:00 | NUR ---
CONTINUE REAPPLYING THE OXYGEN MASK ON PT AT ALL TIMES EVERY 10 MINUTES, PT IS FORGETFUL, BUT COOPERATIVE
[2020-04-14 12:08] LABS: BUN/Creatinine Ratio 36.4; Potassium 5.4 mmol/L (3.5-5.1)
[2020-04-14 12:58] LABS: Lymphocytes % (manual) 7 (10.0-50.0); Monocytes % (manual) 7 (0-12)
--- NOTE | 2020-04-14 13:07 | NUR ---
LUNCH ASSISTED PT WITH HIS MEAL, PT ATE 80%, TOLERATED WELL
--- NOTE | 2020-04-14 14:20 | NUR ---
RT NOTE: PT FOUND TO HAVE RIPPED MASK OFF AND APPEARED TO BE IN DISTRESS. SPO2 81%. NON-REBREATHER PLACED BACK ON PT AT 15L AND AFTER ABOUT 5 MIN, SPO2 FRANCES TO 94. WILL CONTINUE TO MONITOR.
--- NOTE | 2020-04-14 16:45 | NUR ---
PAIN SPOKE WITH DR PNA REGARDING PATIENT'S HEADACHE AND BODY ACHE AND TYLENOL Q 8H NOT HOLDING PT ENOUGH, WITH NEW ORDERS OF TRAMADOL 50 Q 12HR OBTAIN
[2020-04-14 17:00] VITALS: BP 159/94
--- NOTE | 2020-04-14 18:20 | NUR ---
DINNER ASSISTED PT FEEDING HIM HIS MEAL, PT ATE 80% DR YING AT BED SIDE AWARE
--- NOTE | 2020-04-14 18:41 | NUR ---
PT CONTINUE STABLE, CONTINUE MONITORING
--- NOTE | 2020-04-14 19:15 | NUR ---
Opening note pt is Alert to self. pts speech is incomprehensible. pt is on 15 liters non rebreather mask. pt is on bedrest. sims in place, and draining to gravity. pt tends to take off his non rebreather mask, and is educated on the importance of leaving it in place. POC discussed with pt. bed is in low locked position, call light is within reach.
[2020-04-14] MEDS: traMADol HCL 50 MG TAB PO PRN (20:34)
[2020-04-14 22:00] VITALS: BP 167/89
[2020-04-15 05:00] VITALS: BP 151/82
--- NOTE | 2020-04-15 07:17 | NUR ---
Closing note Pt is resting in semi fowlers with the HOB at 30 degrees. Pt is on 15L non rebreather mask. Spo2 saturations are currently at 92%. pt is resting comfortably at this time. Endorsed care to day shift RN. Bed in low locked position, call light within reach.
--- NOTE | 2020-04-15 07:24 | NUR ---
RT NOTE: WENT TO PTS ROOM TO ASSESS SPO2, PT IS CURRENTLY ON 15L NRB, HR 86, SPO2 88% RR 20, NO DISTRESS NOTED AT THIS TIME. WILL CONTINUE TO MONITOR PT.
[2020-04-15 08:44] VITALS: BP 123/64
--- NOTE | 2020-04-15 10:09 | NUR ---
CARMELA BUSCH CALLED. ASKED TO HAVE MD CALL BACK AT [phone]. PASSWORD IS "[employer]
[2020-04-15 10:58] LABS: BUN/Creatinine Ratio 34.2; Calcium 8.3 mg/dL (8.5-10.1); Potassium 5.1 mmol/L (3.5-5.1)
[2020-04-15] MEDS ORDERED: FUROSEMIDE 20 MG/2 ML VIAL IV ONE (11:00)
[2020-04-15] MEDS ORDERED: levoFLOXacin 500MG 100 ML IV ONE (11:00)
[2020-04-15] MEDS: guaiFENesin 200 MG/10 ML UD PO PRN ×2 (11:01→17:43)
[2020-04-15] MEDS: traMADol HCL 50 MG TAB PO PRN (11:02)
[2020-04-15] MEDS: ASCORBIC ACID 1,000 MG TAB PO SCH (11:02)
[2020-04-15] MEDS: CHOLECALCIFEROL (VITD3) 1,000UNIT=25mCg TAB PO SCH (11:02)
--- NOTE | 2020-04-15 12:06 | NUR ---
WOUND CARE NOTE: Wound care in for skin integrity monitoring. Patient continue resting on air mattress in Rm. 248A. Patient is awake and non-verbal. Patient appears to be in no pain using Burton Costa Faces Pain Scale. He's max assist in ADL. His Cam[place] score is 13. Skin assessment done with the assistance of patient's nurse, BELKIS Singh. No wound noted other than R great toe dry scabbed abrasion with protective dry dressing (Band aid). Patient is incontinent, michaela care given, care pad changed and applied Barrier cream to sacrum. Applied new protective Opti foam sacral dressing. L lateral foot noted with blanchable redness, applied protective Opti foam gentle dressing. Patient tolerated well, repositioned for comfort facing his Rt. side, redistributed pressure points with pillows and and elevated BLE on pillows. RECOMMENDATION: Continuation of all wound care orders prescribed by MD, continue with skin/wound plan of care, continue monitoring by wound care while patient is hospitalized due to immobility. Addendum: 04/15/20 at 1605 by Soledad Perez RN Amended: Links added.
[2020-04-15 12:30] VITALS: BP 137/72
[2020-04-15] MEDS: ZINC SULFATE 220mg CAP or TAB PO SCH (13:21)
[2020-04-15 17:19] VITALS: BP 143/80
[2020-04-15] MEDS: MORPHINE SULF INJ 2 MG/ML SYRINGE 1ML IV PRN (17:43)
--- NOTE | 2020-04-15 19:20 | NUR ---
opening note pt is positioned in semi fowlers position with HOB at 30 degrees. pt is currently on 15L non rebreather mask. Pt is confused, and is alert to self only. no s/s of distress at this time. bed in low locked position, call light within reach.
[2020-04-15 22:00] VITALS: BP 96/63
--- NOTE | 2020-04-16 00:30 | NUR ---
HEART RATE Heart rate has returned to the 150s. Blood pressure measured prior to administration of second dose of Metoprolol 5mg. Will continue to monitor. Pulse oximeter probe changed at this time due to poor waveform. Spo2 reading increased from 81% to 90% Addendum: 04/17/20 at 0125 by GUANAKO BOURNE RN RN Incorrect date. Correct date is 04/17/20
[2020-04-16] MEDS: traMADol HCL 50 MG TAB PO PRN ×2 (01:03→10:20)
[2020-04-16 05:00] VITALS: BP 116/77
[2020-04-16 05:15] LABS: Hemoglobin 12.2 g/dL (13.5-17.5); White Blood Cell 6.2 10^3/uL (4.4-10.8)
[2020-04-16 05:18] LABS: Hematocrit 37.5 % (41.0-53.0); Mean Corpuscular Hemoglobin 33.7 pg (28.0-32.0); Mean Corpuscular Hgb Conc. 32.4 g/dL (32.0-36.0); Mean Corpuscular Volume 103.9 fL (80.0-100.0); Platelet Count (auto) 114 10^3/uL (140-450); Red Blood Cells 3.61 10^6/uL (4.5-5.90); Red Cell Distribution Width 15.6 % (11.8-14.3)
[2020-04-16 05:31] LABS: Potassium 4.6 mmol/L (3.5-5.1)
[2020-04-16 05:37] LABS: BUN/Creatinine Ratio 37.1; Basophils % (manual) 0 (0.0-2.0); Blast Cells 0; Calcium 8.2 mg/dL (8.5-10.1); Eosinophils % (manual) 0 (0-7); Promyelocytes % 0; Reactive Lymphocytes 0
[2020-04-16 06:21] LABS: Band Neutrophils % (manual) 3; Lymphocytes % (manual) 2 (10.0-50.0); Metamyelocytes % 1; Monocytes % (manual) 3 (0-12); Myelocytes % 1
--- NOTE | 2020-04-16 07:14 | NUR ---
Closing note Pt resting in left lateral position. pt is on 15L non rebreather mask. spo2 saturation is 93% at this time. no s/s of pain or distress at this time. endorsed care to day shift RN.
--- NOTE | 2020-04-16 08:00 | NUR ---
OPENING SHIFT NOTE Assumed care of patient. PT is awake and alert x1 and responds to name. Patient is on o2 at 15L via nonrebreather. No sign/symptoms of distress noted. Bed is locked in lowest position, side rails x 2 are up, call light is within reach, and bed alarm is on. Will continue to monitor.
[2020-04-16 09:00] VITALS: BP 112/57
[2020-04-16] MEDS: ZINC SULFATE 220mg CAP or TAB PO SCH (10:19)
[2020-04-16] MEDS: CHOLECALCIFEROL (VITD3) 1,000UNIT=25mCg TAB PO SCH (10:19)
[2020-04-16] MEDS: levoFLOXacin 500MG 100 ML IV SCH (10:19)
[2020-04-16] MEDS: ENOXAPARIN SOD 40 MG/0.4 ML SYRINGE SC SCH (10:19)
[2020-04-16] MEDS: ASCORBIC ACID 1,000 MG TAB PO SCH (10:19)
[2020-04-16] MEDS ORDERED: D5W/SOD CHL 0.45% 1,000 ML IV SCH (12:15)
[2020-04-16 13:00] VITALS: BP 116/76
[2020-04-16 17:00] VITALS: BP 102/62
--- NOTE | 2020-04-16 19:20 | NUR ---
OPENING SHIFT NOTE Assumed care of patient who is A&O x1. Currently on 15L via non-rebreather, sating in the low 80s. Continuous telemetry monitoring in place and current rhythm is A-fib. Patient is non-verbal, but moaning and guarding of right arm indicate pain. Pain management options reviewed. Midline in left upper arm is intact and patent. NO s/s of infection noted. IVF infusing as ordered. Oviedo catheter in place. Tubing is free from kinks and collection bag is hung below the level of the bladder; draining light yellow urine. Bed is in low locked position and side rails up x2. Call light is within reach. Will continue to monitor changes PRN.
--- NOTE | 2020-04-16 20:30 | NUR ---
Patient care Patient turned to off set pressure. Positioned with pillows. Gown and CHUX changed.
--- NOTE | 2020-04-16 21:20 | NUR ---
HEART RATE Patient is in A-fib with RVR. Rate is sustaining in the 150s. Hospitalist paged to inform. Awaiting call back.
--- NOTE | 2020-04-16 21:29 | NUR ---
HOSPITALIST Received call back from Hospitalist, Dr. Akers. New orders received. Read back and verified.
[2020-04-16] MEDS ORDERED: METOPROLOL TARTRATE 1MG/1ML-5ML VIAL IV ONE (21:42)
[2020-04-16] MEDS: METOPROLOL TARTRATE 1MG/1ML-5ML VIAL IV SCH (21:47)
[2020-04-16 22:10] VITALS: BP 98/77
[2020-04-17] MEDS: METOPROLOL TARTRATE 1MG/1ML-5ML VIAL IV SCH (00:32)
--- NOTE | 2020-04-17 03:21 | NUR ---
DESATURATION Patient found with NRB off. Spo2 is 85% Mask replaced and saturation increased to 95% on 15L via NRB.
[2020-04-17 05:00] VITALS: BP 99/47
[2020-04-17 05:39] LABS: Hematocrit 36.5 % (41.0-53.0); Mean Corpuscular Hemoglobin 33.8 pg (28.0-32.0); Mean Corpuscular Hgb Conc. 32.8 g/dL (32.0-36.0); Mean Corpuscular Volume 102.8 fL (80.0-100.0); Platelet Count (auto) 103 10^3/uL (140-450); Red Blood Cells 3.55 10^6/uL (4.5-5.90); White Blood Cell 7.5 10^3/uL (4.4-10.8)
[2020-04-17 05:52] LABS: Band Neutrophils % (manual) 0; Basophils % (manual) 0 (0.0-2.0); Blast Cells 0; Eosinophils % (manual) 0 (0-7); Metamyelocytes % 0; Myelocytes % 0; Promyelocytes % 0; Reactive Lymphocytes 0
[2020-04-17 05:53] LABS: Calcium 8.2 mg/dL (8.5-10.1); Potassium 4.2 mmol/L (3.5-5.1)
[2020-04-17 05:56] LABS: BUN/Creatinine Ratio 39.4
[2020-04-17 07:08] LABS: Lymphocytes % (manual) 2 (10.0-50.0); Monocytes % (manual) 3 (0-12)
[2020-04-17 08:52] VITALS: BP 101/62
[2020-04-17] MEDS: ENOXAPARIN SOD 40 MG/0.4 ML SYRINGE SC SCH (10:20)
[2020-04-17] MEDS: ASCORBIC ACID 1,000 MG TAB PO SCH (10:20)
[2020-04-17] MEDS: levoFLOXacin 500MG 100 ML IV SCH (10:20)
[2020-04-17] MEDS: ZINC SULFATE 220mg CAP or TAB PO SCH (10:21)
[2020-04-17] MEDS: CHOLECALCIFEROL (VITD3) 1,000UNIT=25mCg TAB PO SCH (10:22)
[2020-04-17] MEDS: D5W/SOD CHL 0.45% 1,000 ML IV SCH ×2 (10:23→20:15)
[2020-04-17] MEDS: ACETAMINOPHEN 325 MG TAB PO PRN (10:23)
[2020-04-17 12:28] VITALS: BP 100/69
--- NOTE | 2020-04-17 14:25 | NUR ---
Nutrition Followup Notes Pt wt is 82.7 kg Unable to speak to pt d/t pt is positive for COVID. Pt is wit a Cardiac Diet, appetite is poor aeb ave 31% PO intake over 2 days per RN doc. Will continue to monitor PO status, skin status, pertinent labs and weight trends. Will f/u in 3-5 days. Recommendation: Consider Ensure Enlive BID to help increase pt PO intake. Est energy needs 3801-2499 kcal (18-20 kcal/kg BW 88.4kg) Est protein needs 71-88g (0.8-1g/kg BW 88.4kg) will reassess prn. LABS: BUN 41H, GLUC 116H, Ca 8.2L, Alb 2.0L GI: Pt last BM noted on 04/12 per RN doc. BS: 14 mod risk. Refer to wound assessment report for full details. PES: Obesity r/t caloric intake in excess of needs aeb pt with BMI of 31.5kg/m2 which is obese Comments 1) Continue to monitor po intake, labs, skin 2) Refer pt to OPD on DC 3) Continue current plan of care
--- NOTE | 2020-04-17 14:49 | NUR ---
PT REFUSING LUNCH. WILL PLACE NUTRITION CONSULT.
--- NOTE | 2020-04-17 14:58 | NUR ---
URINE BACTERIA CULTURE COLLECTED AND SENT TO LAB.
[2020-04-17] MEDS: traMADol HCL 50 MG TAB PO PRN ×2 (15:26)
[2020-04-17 17:25] VITALS: BP 101/54
[2020-04-17] MEDS: MORPHINE SULF INJ 2 MG/ML SYRINGE 1ML IV PRN (22:51)
[2020-04-17 23:20] VITALS: BP 121/71
[2020-04-18] MEDS: METOPROLOL TARTRATE 1MG/1ML-5ML VIAL IV SCH ×3 (00:30→06:38)
--- NOTE | 2020-04-18 01:29 | NUR ---
DESATURATION Patient's saturations declined to 83% on 15L non-rebreather. Oxymizer placed under the non-rebreather at 10L. Spo2 increased to 85% however Spo2 monitor is alerting "poor signal". Attempted to relocate probe on opposite and and earlobe with no improvement in signal. Assessed using pulse oximeter on Dinamap, which indicates an Spo2 of 98% Patient is poorly tolerating the Oxymizer under his re-breather. Continued attempts to remove it are made. Adhesive Spo2 probe changed and Oxymizer removed. Patient remains on 15L via non-rebreather and current Spo2 reading is 88%
--- NOTE | 2020-04-18 04:20 | NUR ---
HOSPITALIST PAGED Paged hospitalist regarding patient's heart rate and to request orders. Patient is A-fib, sustaining in the 140s. Awaiting call back.
[2020-04-18] MEDS: traMADol HCL 50 MG TAB PO PRN ×2 (04:39→05:28)
[2020-04-18 05:35] VITALS: BP 117/67
[2020-04-18] MEDS: D5W/SOD CHL 0.45% 1,000 ML IV SCH (06:15)
--- NOTE | 2020-04-18 06:45 | NUR ---
DESATURATION Patient saturation decreased to 76% Upon entering room, found patient had removed his non-rebreather. Patient's respirations are 56bpm with noted use of accessory muscles. Mask replaced and patient instructed to take slow deep breaths. Patient continues to be tachypneic and continues to use accessory muscles. Saturations increased to 87% Respiratory therapist informed of patients condition. States he will come assess the patient.
--- NOTE | 2020-04-18 07:30 | NUR ---
Opening Shift Note Assumed care of patient, awake and alert. No S/S of distress/SOB or pain. Instructed on POC and to call for assist PRN, will continue to monitor for changes Q1hr and PRN. Fall precautions in place per safety protocol.
[2020-04-18 09:00] VITALS: BP 143/71
[2020-04-18] MEDS: ZINC SULFATE 220mg CAP or TAB PO SCH ×2 (10:00→10:39)
[2020-04-18] MEDS: CHOLECALCIFEROL (VITD3) 1,000UNIT=25mCg TAB PO SCH ×2 (10:00→10:39)
[2020-04-18] MEDS: ASCORBIC ACID 1,000 MG TAB PO SCH ×2 (10:00→10:39)
[2020-04-18] MEDS: levoFLOXacin 500MG 100 ML IV SCH (10:39)
--- NOTE | 2020-04-18 12:00 | NUR ---
Hospitalist MD Livingston at bedside aware of patient status. Per MD De Anda, patient is actively declining and will call to update family. Will continue to monitor patient.
[2020-04-18] MEDS: ENOXAPARIN SOD 40 MG/0.4 ML SYRINGE SC SCH (12:28)
[2020-04-18 13:00] VITALS: BP 139/66
--- NOTE | 2020-04-18 14:15 | NUR ---
Patient status Patient was witnessed to have irregular heart beat patterns on heart monitor. Upon entering patients room, patients breathing was witnessed to be deep and talat. Attempted to obtain BP however, BP was unobtainable. Patient was assessed for heart beat, upon assessment by this nurse, no heart beat was found. At this time MD Luque was paged to be notified about patients change in status.
--- NOTE | 2020-04-18 14:27 | NUR ---
TOD MD Livingston pronounced TOD to be 1427. Patient was a comfort measures only status. Per MD Livingston, he will notify family. Will make calls to [facility] and [employer] at this time.
--- NOTE | 2020-04-18 14:45 | NUR ---
[facility] Per Kika from [facility], patient is cleared and not a candidate due to HX of dementia. Case #[id number].
--- NOTE | 2020-04-18 15:00 | NUR ---
[employer] Mechan[employer] Hel[employer] Called the biomedical repair technician and spoke with Carmen. Per Carmen, this nurse is to expect a call from another certified vehicle fire investigator. Awaiting call back at this time.
--- NOTE | 2020-04-18 15:20 | NUR ---
Vannesa Spoke to patient's daughter Lara regarding info for mortuary. Per daughter Lara, she will return call regarding info after she speaks with family. Awaiting call back at this time.
--- NOTE | 2020-04-18 15:28 | NUR ---
re-assessment Patient . Addendum: 04/18/20 at 1529 by Gretel STEIN Amended: Links added.
--- NOTE | 2020-04-18 16:23 | NUR ---
[employer] Spoke to Kay Steele, per Kay, patient has been released from coroners standpoint. Will do Postmortum care at this time.
--- NOTE | 2020-04-18 16:38 | NUR ---
Mortuary Received call ack from daughter Lara. Per Lara, the mortuary of choice for patient is [facility] . Nigel call mortuary, when patient is ready for pickup.
--- NOTE | 2020-04-18 18:38 | NUR ---
Mortuary Spoke to Matt from [facility], per Matt ETA for body is 1 hour to an hour and a half. Will endorse to nightshift.
--- NOTE | 2020-04-18 19:36 | NUR ---
[facility] customer engagement representative arrived at 1929. Verification of Dawn Combs performed. Body released to [facility] at 193. Informed vp integration.
== END 2020-04-18 19:30 | disposition expired | DRG 177 ==
LOC: EDBD 19:08 → EDUNIT# 19:08 → ER 19:12 → TELE 19:13 → TELE-EAST 04-08 03:35
PROVIDERS: ADMIT Nurse Practitioner; ATTEND Internal Medicine
DX: U07.1 COVID-19 (principal); I21.A1 Myocardial infarction type 2; N17.0 Acute kidney failure with tubular necrosis; J12.89 Other viral pneumonia; J96.01 Acute respiratory failure with hypoxia; N39.0 Urinary tract infection, site not specified; I48.20 Chronic atrial fibrillation, unspecified; J44.0 Chronic obstructive pulmonary disease with (acute) lower respiratory infection; E87.0 Hyperosmolality and hypernatremia; E11.9 Type 2 diabetes mellitus without complications; E78.5 Hyperlipidemia, unspecified; F03.90 Unspecified dementia, unspecified severity, without behavioral disturbance, psychotic disturbance, mood disturbance, and anxiety; Z51.5 Encounter for palliative care; Z66 Do not resuscitate; Z79.01 Long term (current) use of anticoagulants; Z74.01 Bed confinement status; Z79.899 Other long term (current) drug therapy; Z86.73 Personal history of transient ischemic attack (TIA), and cerebral infarction without residual deficits; Z91.19 Patient's noncompliance with other medical treatment and regimen
CPT/HCPCS: 36415; 36600; 51702; 71045; 80048; 80053; 81001; 82728; 82805; 83605; 83615; 83735; 83880; 84100; 84443; 84484; 85007; 85025; 85027; 85379; 85610; 85730; 86141; 87070; 87081; 87086; 87088; 87186; 87804; 87880; 92610; 93005; 94640; 96365; 96372; 96375; 99291; G0378; J1335; J1956; J2405; J3490; J7060